=== PATIENT | female | born 1990 | race Two or more races ===

== ENCOUNTER 2018-01-11 12:23 | Inpatient (IN) | payer MEDICAID ==
[2018-01-11] MEDS ORDERED: Ondansetron 4 MG/2 ML SDV IVPUSH PRN (14:46)
[2018-01-11] MEDS ORDERED: Metoclopramide 10 MG/2 ML SDV IVPUSH ONE (14:46)
[2018-01-11] MEDS ORDERED: Sodium Chloride 0.9% 10 ML Syringe FLUSH PRN (14:46)
[2018-01-11] MEDS ORDERED: Citric Acid/Sodium Citrate Solution 30 ML Cup PO ONE (14:46)
[2018-01-11 14:53] VITALS: BP 140/88
[2018-01-11] MEDS ORDERED: Oxytocin/Lactated Ringers 10 UNIT/1,000 ML BAG IV SCH (15:00)
[2018-01-11] MEDS ORDERED: Lactated Ringers 1,000 ML IV SCH (15:00)
[2018-01-11] MEDS ORDERED: Bupivacaine 0.5% 30 ML SDV ONE ×2 (15:24→15:27)
[2018-01-11] MEDS ORDERED: Citric Acid/Sodium Citrate Solution 30 ML Cup ONE (15:37)
--- NOTE | 2018-01-11 16:14 | PCM.LDHP ---
L&D History of Present Illness - General Date of Service: 01/11/18 Admit Problem/Dx: Patient Status Order with Admit Dx/Problem 01/11/18 12:59 Patient Status [ADT] Routine 01/11/18 14:46 Patient Status [ADT] Routine Admission Diagnosis/Problem Admission Diagnosis/Problem Source of Information: Patient History Limitations: Reports: No Limitations - History of Present Illness Introduction:: 32 year at 36w5d here with gestational hypertension with superimposed pre- ecclampsia with blood pressures of 150s-170s/90s. Blood pressures at home had been 170/90s. Complaining of new onset of headaches and visual changes. PNC with Dr. Orosco complicated by 1) Obesity 2) history of gastric sleeve 3) GBS positive 4) Prior 5) Iron deficiency anemia - normal hemoglobin electrophoresis early in care 6) "prediabetes" 7) History of macrosomia 8) Desires BTL 9) Gestational hypertension - on labetolol 100 bid for some time in in September but then changed providers and it was discontinued - Related Data Allergies/Adverse Reactions: Allergies Allergy/AdvReac Type Severity Reaction Status Date / Time amoxicillin [Amoxicillin] Allergy Mild Hives Verified 01/11/18 12:59 codeine Allergy Rash Verified 01/11/18 12:59 procaine [From Novocain] Allergy Shortness Verified 01/11/18 12:59 of Breath Home Medications: Home Meds Cyanocobalamin (Vitamin B-12) [Vitamin B-12] 1,000 mcg IM ASDIRECTED 05/08/16 [ History] Pnv No.122/Iron/Folic Acid [ Multi Tablet] 1 each PO DAILY 05/08/16 [ History] Past Medical History Cardiovascular History: Reports: None Respiratory History: Reports: None Genitourinary History: Reports: None 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: , Other (See Below) Other OB/BYN History: PIH, abnormal glucose tolerance test Musculoskeletal History: Reports: None Neurological History: Reports: None Psychiatric History: Reports: Depression Other Psychiatric History: Never treated clinically, states she had after her first baby but was never DX Endocrine/Metabolic History: Reports: Other (See Below) Other Endocrine/Metabolic History: Prediabetic Hematologic History: Reports: Anemia, Other (See Below) Other Hematologic History: Microcytosis Immunologic History: Reports: None Oncologic (Cancer) History: Reports: None - Past Surgical History HEENT Surgical History: Reports: Adenoidectomy, Tonsillectomy, Other (See Below) Other HEENT Surgeries/Procedures: tubes when she was little GI Surgical History: Reports: Appendectomy, Bariatric Procedure, Cholecystectomy , Other (See Below) Other GI Surgeries/Procedures: gastric sleve Social & Family History - Family History Family Medical History: Noncontributory - Tobacco Use Smoking Status *Q: Former Smoker Used Tobacco, but Quit: Yes Month/Year Tobacco Last Used: 05/2017 - Caffeine Use Caffeine Use: Reports: Tea Other Caffeine Use: 3 cups/day - Recreational Drug Use Recreational Drug Use: No H&P Review of Systems - Review of Systems: Review Of Systems: ROS reveals no pertinent complaints other than HPI. HEENT: Reports: Headaches, Visual Changes L&D Exam - Exam Exam: See Below - Vital Signs Vital Signs: Last Vital Signs Temp 36.6 C 01/11/18 12:59 Pulse 107 H 01/11/18 12:59 Resp 18 01/11/18 12:59 BP 140/88 01/11/18 12:59 Pulse Ox 99 01/11/18 12:59 Weight: 177.808 kg - Exam General: Alert, Oriented HEENT: PERRLA, Conjunctiva Clear, EACs Clear, EOMI, Hearing Intact, Mucosa Moist & [place], Nares Patent, Normal Nasal Septum, Posterior Pharynx Clear, TMs Clear Neck: Supple, Trachea Midline Lungs: Clear to Auscultation, Normal Respiratory Effort Cardiovascular: Regular Rate, Regular Rhythm GI/Abdominal Exam: Normal Bowel Sounds, Soft, Non-Tender, No Organomegaly, No Distention, No Abnormal Bruit, No Mass, Pelvis Stable Genitourinary: Normal external exam, Normal bimanual exam, Normal speculum exam Back Exam: Normal Inspection, Full Range of Motion Extremities: Normal Inspection, Normal Range of Motion, Non-Tender, No Pedal Edema, Normal Capillary Refill Skin: Warm, Dry, Intact Neurological: Cranial Nerves Intact, Reflexes Equal Bilateral Psychiatric: Alert, Normal Affect, Normal Mood - Patient Data Lab Results Last 24 hrs: Laboratory Results - last 24 hr 01/11/18 01/11/18 01/11/18 Range/Units 12:55 13:14 13:14 WBC 6.04 (3.98-10.04) K/mm3 RBC 4.53 (3.98-5.22) M/mm3 Hgb 9.7 L (11.2-15.7) gm/L Hct 31.2 L (34.1-44.9) % MCV 68.9 L (79.4-94.8) fl MCH 21.4 L (25.6-32.2) pg MCHC 31.1 L (32.2-35.5) g/dl RDW Std Deviation 40.1 (36.4-46.3) fL Plt Count 232 (182-369) K/mm3 MPV 9.6 (9.4-12.3) fl Neut % (Auto) 66.5 (34.0-71.1) % Lymph % (Auto) 20.4 (19.3-51.7) % [place] % (Auto) 12.3 (4.7-12.5) % Eos % (Auto) 0.5 L (0.7-5.8) Baso % (Auto) 0.0 L (0.1-1.2) % Neut # (Auto) 4.02 (1.56-6.13) K/mm3 Lymph # (Auto) 1.23 (1.18-3.74) K/mm3 [place] # (Auto) 0.74 H (0.24-0.36) K/mm3 Eos # (Auto) 0.03 L (0.04-0.36) K/mm3 Baso # (Auto) 0.00 L (0.01-0.08) K/mm3 Manual Slide Review Abnormal smear BUN 3 L (7-18) mg/dL Creatinine 0.6 (0.55-1.02) mg/dL Est Cr Clr Drug Dosing 148.49 mL/min Estimated GFR (MDRD) > 60 (>60) mL/min Uric Acid 4.8 (2.6-6.0) mg/dL AST 19 (15-37) U/L ALT 11 L (14-59) U/L Lactate Dehydrogenase 154 (81-234) U/L Urine Color Yellow (Yellow) Urine Appearance Slt cloudy H (Clear) Urine pH 7.0 (5.0-8.0) Ur Specific [place] 1.025 (1.005-1.030) Urine Protein Negative (Negative) Urine Glucose (UA) Negative (Negative) Urine Ketones Trace H (Negative) Urine Occult Blood Negative (Negative) Urine Nitrite Negative (Negative) Urine Bilirubin Negative (Negative) Urine Urobilinogen 1.0 (0.2-1.0) Ur Leukocyte Esterase Trace H (Negative) Blood Type Gel Antibody Screen 01/11/18 Range/Units 13:14 WBC (3.98-10.04) K/mm3 RBC (3.98-5.22) M/mm3 Hgb (11.2-15.7) gm/L Hct (34.1-44.9) % MCV (79.4-94.8) fl MCH (25.6-32.2) pg MCHC (32.2-35.5) g/dl RDW Std Deviation (36.4-46.3) fL Plt Count (182-369) K/mm3 MPV (9.4-12.3) fl Neut % (Auto) (34.0-71.1) % Lymph % (Auto) (19.3-51.7) % [place] % (Auto) (4.7-12.5) % Eos % (Auto) (0.7-5.8) Baso % (Auto) (0.1-1.2) % Neut # (Auto) (1.56-6.13) K/mm3 Lymph # (Auto) (1.18-3.74) K/mm3 [place] # (Auto) (0.24-0.36) K/mm3 Eos # (Auto) (0.04-0.36) K/mm3 Baso # (Auto) (0.01-0.08) K/mm3 Manual Slide Review BUN (7-18) mg/dL Creatinine (0.55-1.02) mg/dL Est Cr Clr Drug Dosing mL/min Estimated GFR (MDRD) (>60) mL/min Uric Acid (2.6-6.0) mg/dL AST (15-37) U/L ALT (14-59) U/L Lactate Dehydrogenase (81-234) U/L Urine Color (Yellow) Urine Appearance (Clear) Urine pH (5.0-8.0) Ur Specific [place] (1.005-1.030) Urine Protein (Negative) Urine Glucose (UA) (Negative) Urine Ketones (Negative) Urine Occult Blood (Negative) Urine Nitrite (Negative) Urine Bilirubin (Negative) Urine Urobilinogen (0.2-1.0) Ur Leukocyte Esterase (Negative) Blood Type A POSITIVE Gel Antibody Screen Negative Result Diagrams: 01/11/18 13:14 01/11/18 13:14 - Problem List (1) Pre-eclampsia added to pre-existing hypertension SNOMED Code(s): 00437485 ICD Code: O11.9 - PRE-EXISTING HYPERTENSION WITH PRE-ECLAMPSIA, UNSP TRIMESTER Status: Acute Current Visit: Yes (2) Morbid obesity with BMI of 50.0-59.9, adult SNOMED Code(s): 847577390 ICD Code: E66.01 - MORBID (SEVERE) OBESITY DUE TO EXCESS CALORIES; Z68.43 - BODY MASS INDEX (BMI) 50-59.9 , ADULT Status: Acute Current Visit: Yes (3) Prediabetes SNOMED Code(s): 031641892 ICD Code: R73.03 - PREDIABETES Status: Acute Current Visit: Yes (4) History of delivery affecting SNOMED Code(s): 964469109, 447701297 ICD Code: O34.219 - MATERNAL CARE FOR UNSP TYPE SCAR FROM PREVIOUS DEL Status: Acute Current Visit: Yes (5) Anemia SNOMED Code(s): 850357092 ICD Code: D64.9 - ANEMIA, UNSPECIFIED Status: Acute Current Visit: Yes Qualifiers: Anemia type: iron deficiency Problem List Initiated/Reviewed/Updated: Yes Orders Last 24hrs: Active Orders 24 hr Category Date Time Status Patient Status [ADT] Routine ADT 01/11/18 14:46 Active Communication Order [RC] ROUTINE Care 01/11/18 14:46 Active Heart Tones [RC] PER UNIT ROUTINE Care 01/11/18 14:46 Active Non Stress Test [RC] PER UNIT ROUTINE Care 01/11/18 12:59 Active Non Stress Test [RC] PER UNIT ROUTINE Care 01/11/18 14:46 Active Peripheral IV Care [RC] . DIRECTED Care 01/11/18 14:46 Active Procedure Site Prep Instruct [RC] ASDIRECTED Care 01/11/18 14:46 Active Verify Patient Consent Obtain [RC] PER UNIT ROUTINE Care 01/11/18 14:46 Active Vital Signs [RC] PER UNIT ROUTINE Care 01/11/18 12:59 Active Vital Signs [RC] PFP Care 01/11/18 14:46 Active Clear Liquid Diet [DIET] Diet 01/11/18 Breakfast Active RAPID PLASMA REAGIN,RPR [CHEM] Routine Lab 01/11/18 13:14 Received Lactated Ringers [Ringers, Lactated] 1,000 ml Med 01/11/18 15:00 Active IV ASDIRECTED Ondansetron [Zofran] Med 01/11/18 14:46 Active 4 mg IVPUSH Q4H PRN Oxytocin/Lactated Ringers [Pitocin in LR 10 Units/1,000 Med 01/11/18 15:00 Active ML] 10 unit in 1,000 ml IV ASDIRECTED Sodium Chloride 0.9% [Saline Flush] Med 01/11/18 14:46 Active 10 ml FLUSH ASDIRECTED PRN PIH Panel [OM.PC] Stat Oth 01/11/18 12:59 Ordered Peripheral IV Insertion Adult [OM.PC] Routine Oth 01/11/18 14:46 Ordered Schedule Procedure [COMM] Per Unit Routine Oth 01/11/18 14:46 Ordered Resuscitation Status Routine Resus Stat 01/11/18 12:59 Ordered Medication Orders Lactated Ringer's (Ringers, Lactated) 1,000 mls @ 125 mls/hr IV ASDIRECTED JOHN Oxytocin/Lactated Ringer's (Pitocin In Lr 10 Units/1,000 Ml) 10 unit in 1,000 mls @ 100 mls/hr IV ASDIRECTED JOHN Ondansetron HCl (Zofran) 4 mg IVPUSH Q4H PRN PRN Reason: Nausea/Vomiting Sodium Chloride (Saline Flush) 10 ml FLUSH ASDIRECTED PRN PRN Reason: Keep Vein Open Assessment/Plan Comment:: 27 year old with superimposed pre-ecclampsia and prior c/s desires repeat BMI 57 and our hospital BMI cut off is 50 given [facility] only staff Given that this is not emergent but just urgent have discussed this with patient and will transfer to [facility] to the care of Dr. Santana. 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
--- NOTE | 2018-01-11 16:18 | PCM.DCSUM1 ---
Discharge Summary - Hospital Course HPI Initial Comments: Admitted for evaluation of blood pressures and assessment of possible pre- ecclampsia. Blood pressures 150s-160s/90s Given BMI transfer to [facility] Diagnosis: Stroke: No - Discharge Data Discharge Date: 01/11/18 Discharge Disposition: DC/Tfer to Acute Hospital 02 Condition: Good - Discharge Diagnosis/Problem(s) (1) Pre-eclampsia added to pre-existing hypertension SNOMED Code(s): 33779404 ICD Code: O11.9 - PRE-EXISTING HYPERTENSION WITH PRE-ECLAMPSIA, UNSP TRIMESTER Status: Acute Current Visit: Yes (2) Morbid obesity with BMI of 50.0-59.9, adult SNOMED Code(s): 397968345 ICD Code: E66.01 - MORBID (SEVERE) OBESITY DUE TO EXCESS CALORIES; Z68.43 - BODY MASS INDEX (BMI) 50-59.9 , ADULT Status: Acute Current Visit: Yes (3) Prediabetes SNOMED Code(s): 187209443 ICD Code: R73.03 - PREDIABETES Status: Acute Current Visit: Yes (4) History of delivery affecting SNOMED Code(s): 651778218, 769840097 ICD Code: O34.219 - MATERNAL CARE FOR UNSP TYPE SCAR FROM PREVIOUS DEL Status: Acute Current Visit: Yes (5) Anemia SNOMED Code(s): 896709037 ICD Code: D64.9 - ANEMIA, UNSPECIFIED Status: Acute Current Visit: Yes Qualifiers: Anemia type: iron deficiency - Discharge Plan *PRESCRIPTION DRUG MONITORING PROGRAM REVIEWED*: Not Applicable *COPY OF PRESCRIPTION DRUG MONITORING REPORT IN PATIENT KASI: Not Applicable Home Medications: Home Meds Cyanocobalamin (Vitamin B-12) [Vitamin B-12] 1,000 mcg IM ASDIRECTED 05/08/16 [ History] Pnv No.122/Iron/Folic Acid [ Multi Tablet] 1 each PO DAILY 05/08/16 [ History] - Discharge Summary/Plan Comment DC Time >30 min.: No - General Info Date of Service: 01/11/18 Functional Status: Reports: Pain Controlled - Review of Systems General: Reports: No Symptoms HEENT: Reports: Headaches, Visual Changes Pulmonary: Reports: No Symptoms Cardiovascular: Reports: No Symptoms Gastrointestinal: Reports: Abdominal Pain Genitourinary: Reports: No Symptoms Musculoskeletal: Reports: No Symptoms Skin: Reports: No Symptoms Neurological: Reports: No Symptoms Psychiatric: Reports: No Symptoms - Patient Data Vitals - Most Recent: Last Vital Signs Temp 36.6 C 01/11/18 12:59 Pulse 107 H 01/11/18 12:59 Resp 18 01/11/18 12:59 BP 140/88 01/11/18 12:59 Pulse Ox 99 01/11/18 12:59 Weight - Most Recent: 177.808 kg Lab Results - Last 24 hrs: Laboratory Results - last 24 hr 01/11/18 01/11/18 01/11/18 Range/Units 12:55 13:14 13:14 WBC 6.04 (3.98-10.04) K/mm3 RBC 4.53 (3.98-5.22) M/mm3 Hgb 9.7 L (11.2-15.7) gm/L Hct 31.2 L (34.1-44.9) % MCV 68.9 L (79.4-94.8) fl MCH 21.4 L (25.6-32.2) pg MCHC 31.1 L (32.2-35.5) g/dl RDW Std Deviation 40.1 (36.4-46.3) fL Plt Count 232 (182-369) K/mm3 MPV 9.6 (9.4-12.3) fl Neut % (Auto) 66.5 (34.0-71.1) % Lymph % (Auto) 20.4 (19.3-51.7) % [place] % (Auto) 12.3 (4.7-12.5) % Eos % (Auto) 0.5 L (0.7-5.8) Baso % (Auto) 0.0 L (0.1-1.2) % Neut # (Auto) 4.02 (1.56-6.13) K/mm3 Lymph # (Auto) 1.23 (1.18-3.74) K/mm3 [place] # (Auto) 0.74 H (0.24-0.36) K/mm3 Eos # (Auto) 0.03 L (0.04-0.36) K/mm3 Baso # (Auto) 0.00 L (0.01-0.08) K/mm3 Manual Slide Review Abnormal smear BUN 3 L (7-18) mg/dL Creatinine 0.6 (0.55-1.02) mg/dL Est Cr Clr Drug Dosing 148.49 mL/min Estimated GFR (MDRD) > 60 (>60) mL/min Uric Acid 4.8 (2.6-6.0) mg/dL AST 19 (15-37) U/L ALT 11 L (14-59) U/L Lactate Dehydrogenase 154 (81-234) U/L Urine Color Yellow (Yellow) Urine Appearance Slt cloudy H (Clear) Urine pH 7.0 (5.0-8.0) Ur Specific [place] 1.025 (1.005-1.030) Urine Protein Negative (Negative) Urine Glucose (UA) Negative (Negative) Urine Ketones Trace H (Negative) Urine Occult Blood Negative (Negative) Urine Nitrite Negative (Negative) Urine Bilirubin Negative (Negative) Urine Urobilinogen 1.0 (0.2-1.0) Ur Leukocyte Esterase Trace H (Negative) Blood Type Gel Antibody Screen 01/11/18 Range/Units 13:14 WBC (3.98-10.04) K/mm3 RBC (3.98-5.22) M/mm3 Hgb (11.2-15.7) gm/L Hct (34.1-44.9) % MCV (79.4-94.8) fl MCH (25.6-32.2) pg MCHC (32.2-35.5) g/dl RDW Std Deviation (36.4-46.3) fL Plt Count (182-369) K/mm3 MPV (9.4-12.3) fl Neut % (Auto) (34.0-71.1) % Lymph % (Auto) (19.3-51.7) % [place] % (Auto) (4.7-12.5) % Eos % (Auto) (0.7-5.8) Baso % (Auto) (0.1-1.2) % Neut # (Auto) (1.56-6.13) K/mm3 Lymph # (Auto) (1.18-3.74) K/mm3 [place] # (Auto) (0.24-0.36) K/mm3 Eos # (Auto) (0.04-0.36) K/mm3 Baso # (Auto) (0.01-0.08) K/mm3 Manual Slide Review BUN (7-18) mg/dL Creatinine (0.55-1.02) mg/dL Est Cr Clr Drug Dosing mL/min Estimated GFR (MDRD) (>60) mL/min Uric Acid (2.6-6.0) mg/dL AST (15-37) U/L ALT (14-59) U/L Lactate Dehydrogenase (81-234) U/L Urine Color (Yellow) Urine Appearance (Clear) Urine pH (5.0-8.0) Ur Specific [place] (1.005-1.030) Urine Protein (Negative) Urine Glucose (UA) (Negative) Urine Ketones (Negative) Urine Occult Blood (Negative) Urine Nitrite (Negative) Urine Bilirubin (Negative) Urine Urobilinogen (0.2-1.0) Ur Leukocyte Esterase (Negative) Blood Type A POSITIVE Gel Antibody Screen Negative Med Orders - Current: Current Medications Lactated Ringer's (Ringers, Lactated) 1,000 mls @ 125 mls/hr IV ASDIRECTED JOHN Oxytocin/Lactated Ringer's (Pitocin In Lr 10 Units/1,000 Ml) 10 unit in 1,000 mls @ 100 mls/hr IV ASDIRECTED JOHN Ondansetron HCl (Zofran) 4 mg IVPUSH Q4H PRN PRN Reason: Nausea/Vomiting Sodium Chloride (Saline Flush) 10 ml FLUSH ASDIRECTED PRN PRN Reason: Keep Vein Open Discontinued Medications Bupivacaine HCl (Marcaine 0.5%) Confirm Administered Dose 30 ml .ROUTE .STK-MED ONE Stop: 01/11/18 15:25 Bupivacaine HCl (Marcaine 0.5%) Confirm Administered Dose 30 ml .ROUTE .STK-MED ONE Stop: 01/11/18 15:28 Citric Acid/Sodium Citrate (Bicitra Solution) 30 ml PO ONETIME ONE Stop: 01/11/18 14:47 Citric Acid/Sodium Citrate (Bicitra Solution) Confirm Administered Dose 30 ml .ROUTE .STK-MED ONE Stop: 01/11/18 15:38 Metoclopramide HCl (Reglan) 10 mg IVPUSH ONETIME ONE Stop: 01/11/18 14:47
== END 2018-01-11 17:00 | DRG 781 ==
LOC: JD.OBCHECK 12:23 → JD.OB 14:46
PROVIDERS: ADMIT Obstetrics & Gynecology; ATTEND Obstetrics & Gynecology
DX: O11.3 Pre-existing hypertension with pre-eclampsia, third trimester (principal); Z68.43 Body mass index [BMI] 50.0-59.9, adult; O10.913 Unspecified pre-existing hypertension complicating pregnancy, third trimester; O99.213 Obesity complicating pregnancy, third trimester; O99.89 Other specified diseases and conditions complicating pregnancy, childbirth and the puerperium; E66.01 Morbid (severe) obesity due to excess calories; R73.03 Prediabetes; O99.013 Anemia complicating pregnancy, third trimester; Z3A.36 36 weeks gestation of pregnancy; D50.9 Iron deficiency anemia, unspecified; Z98.84 Bariatric surgery status; O99.820 Streptococcus B carrier state complicating pregnancy; O34.219 Maternal care for unspecified type scar from previous cesarean delivery; N85.8 Other specified noninflammatory disorders of uterus; O13.3 Gestational [pregnancy-induced] hypertension without significant proteinuria, third trimester; Z79.899 Other long term (current) drug therapy; Z88.6 Allergy status to analgesic agent; Z88.1 Allergy status to other antibiotic agents; O99.343 Other mental disorders complicating pregnancy, third trimester; F32.9 Major depressive disorder, single episode, unspecified; Z90.49 Acquired absence of other specified parts of digestive tract; Z87.891 Personal history of nicotine dependence
CPT/HCPCS: 36415; 59025; 81003; 82565; 83615; 84450; 84460; 84520; 84550; 85025; 86592; 86850; 86900; 86901; J3490

== ENCOUNTER 2023-05-13 15:30 | Emergency (ER) | payer SELFPAY ==
[2023-05-13 15:50] VITALS: BP 182/110; PULSE 103
== END 2023-05-13 17:10 | disposition left against medical advice (07) ==
LOC: JD.ED 15:30
DX: R20.2 Paresthesia of skin (principal); Z88.0 Allergy status to penicillin; Z88.3 Allergy status to other anti-infective agents; Z88.5 Allergy status to narcotic agent; Z90.49 Acquired absence of other specified parts of digestive tract
CPT/HCPCS: 70450; 70450-26; 71046; 71046-26; 72125; 72125-26; 93005; 99284

== ENCOUNTER 2023-07-29 20:50 | Emergency (ER) | payer MEDICAID ==
[2023-07-29] MEDS: Ketorolac 60 MG/2 ML SDV IM ONE (21:50)
[2023-07-29 22:19] VITALS: BP 185/95; PULSE 95
== END 2023-07-29 22:15 | disposition home or self-care (01) ==
LOC: JD.ED 20:50
DX: K02.9 Dental caries, unspecified (principal); Z90.49 Acquired absence of other specified parts of digestive tract; Z88.0 Allergy status to penicillin; Z88.5 Allergy status to narcotic agent
CPT/HCPCS: 96372; 99282; J1885; 99283

== ENCOUNTER 2023-08-09 21:11 | Emergency (ER) | payer MEDICAID ==
[2023-08-09] MEDS: Ketorolac 60 MG/2 ML SDV IM ONE (21:46)
[2023-08-09 22:18] VITALS: BP 125/76; PULSE 56
== END 2023-08-09 22:18 | disposition home or self-care (01) ==
LOC: JD.ED 21:11
DX: K08.89 Other specified disorders of teeth and supporting structures (principal); Z88.0 Allergy status to penicillin; Z88.5 Allergy status to narcotic agent; Z88.1 Allergy status to other antibiotic agents; Z90.49 Acquired absence of other specified parts of digestive tract
CPT/HCPCS: 96372; 99282; J1885

== ENCOUNTER 2023-08-13 14:42 | Emergency (ER) | payer MEDICAID | END 2023-08-13 15:22 | disposition left against medical advice (07) | LOC: JD.ED 14:42 | DX: Z53.21 Procedure and treatment not carried out due to patient leaving prior to being seen by health care provider (principal) ==

== ENCOUNTER 2023-08-14 11:12 | Emergency (ER) | payer MEDICAID ==
[2023-08-14 11:33] VITALS: PULSE 100
[2023-08-14 12:48] LABS: BASOPHILS PERCENT AUTO 0.4 % (0.0-1.0); EOSINOPHILS ABSOLUTE AUTO 0.1 K/mm3 (0.0-0.4); EOSINOPHILS PERCENT AUTO 0.7 % (0.0-6.0); HEMATOCRIT 43.4 % (37.0-47.0); IMMATURE GRAN ABSOLUTE AUTO 0.02 K/mm3 (0.00-0.05); IMMATURE GRAN PERCENT AUTO 0.3 % (0.0-0.4); LYMPHOCYTES PERCENT AUTO 28.4 % (24.0-44.0); MEAN CORPUSCULAR HGB CONC 34.6 g/dl (32.0-36.0); MEAN CORPUSCULAR VOLUME 81.1 fl (83.0-99.0); MEAN PLATELET VOLUME 9.6 fl (9.4-12.3); MONOCYTES ABSOLUTE AUTO 0.7 K/mm3 (0.0-0.8); MONOCYTES PERCENT AUTO 9.7 % (0.0-8.0); NEUTROPHILS ABSOLUTE AUTO 4.3 K/mm3 (1.8-7.7); NEUTROPHILS PERCENT AUTO 60.5 % (41.0-71.0); PLATELET COUNT,PLT 251 K/mm3 (150-400); RED BLOOD CELL COUNT 5.35 M/mm3 (4.10-5.30); WHITE BLOOD CELL COUNT,WBC 7.11 K/mm3 (3.9-11.3)
[2023-08-14 13:13] LABS: ALBUMIN 3.8 g/dl (3.4-5.0); ANION GAP 14.6 (5-15); BILIRUBIN TOTAL 0.7 mg/dL (0.2-1.0); BUN/CREATININE RATIO 15.7 (14-18); CALCIUM 9.2 mg/dL (8.5-10.1); CREATININE 0.7 mg/dL (0.55-1.02); EST CRCL DRUG DOSING (CG) 121.69 mL/min; POTASSIUM,K 3.6 mEq/L (3.5-5.1); PROTEIN TOTAL,TP 7.6 g/dl (6.4-8.2)
[2023-08-14] MEDS: amLODIPine 5 MG Tab PO ONE ×2 (13:14→13:45)
[2023-08-14] MEDS: cefTRIAXone 1 GM Vial IM ONE (13:14)
[2023-08-14] MEDS: Acetaminophen 325 MG Tab PO ONE (13:45)
[2023-08-14] MEDS: Ketorolac 60 MG/2 ML SDV IM ONE (13:47)
[2023-08-14 13:49] VITALS: BP 156/115
== END 2023-08-14 13:55 | disposition home or self-care (01) ==
LOC: JD.ED 11:12
DX: K04.7 Periapical abscess without sinus (principal); F17.210 Nicotine dependence, cigarettes, uncomplicated; Z86.16 Personal history of COVID-19; Z79.899 Other long term (current) drug therapy; Z88.0 Allergy status to penicillin; Z88.5 Allergy status to narcotic agent; Z88.8 Allergy status to other drugs, medicaments and biological substances
CPT/HCPCS: 36415; 80053; 84702; 85025; 96372; 99283; A9270; J1885

== ENCOUNTER 2023-08-23 00:48 | Emergency (ER) | payer MEDICAID ==
[~2023-08-23 00:48] MED LIST: Naloxone 2 MG/2 ML Syringe ONE
[2023-08-23] MEDS: Haloperidol Lactate 5 MG/ML SDV IVPUSH ONE ×2 (01:02→01:20)
[2023-08-23] MEDS: Sodium Chloride 0.9% 1,000 ML IV ONE (01:07)
[2023-08-23 01:26] LABS: BASOPHILS PERCENT AUTO 0.3 % (0.0-1.0); EOSINOPHILS ABSOLUTE AUTO 0.1 K/mm3 (0.0-0.4); EOSINOPHILS PERCENT AUTO 1.3 % (0.0-6.0); HEMATOCRIT 44.1 % (37.0-47.0); HEMOGLOBIN 15.1 gm/dl (12.0-16.0); IMMATURE GRAN ABSOLUTE AUTO 0.02 K/mm3 (0.00-0.05); IMMATURE GRAN PERCENT AUTO 0.3 % (0.0-0.4); LYMPHOCYTES ABSOLUTE AUTO 2.1 K/mm3 (1.0-4.8); LYMPHOCYTES PERCENT AUTO 30.1 % (24.0-44.0); MEAN CORPUSCULAR HEMOGLOBIN 27.9 pg (28.0-32.0); MEAN CORPUSCULAR HGB CONC 34.2 g/dl (32.0-36.0); MEAN CORPUSCULAR VOLUME 81.4 fl (83.0-99.0); MEAN PLATELET VOLUME 9.7 fl (9.4-12.3); MONOCYTES ABSOLUTE AUTO 0.6 K/mm3 (0.0-0.8); MONOCYTES PERCENT AUTO 8.9 % (0.0-8.0); NEUTROPHILS PERCENT AUTO 59.1 % (41.0-71.0); PLATELET COUNT,PLT 231 K/mm3 (150-400); RED BLOOD CELL COUNT 5.42 M/mm3 (4.10-5.30); WHITE BLOOD CELL COUNT,WBC 6.82 K/mm3 (3.9-11.3)
[2023-08-23 01:47] LABS: ALANINE AMINOTRANSFERASE,ALT 30 U/L (14-59); ALBUMIN 3.6 g/dl (3.4-5.0); ALKALINE PHOSPHATASE 85 U/L (46-116); ANION GAP 16.9 (5-15); ASPARTATE AMNIOTRANSFERASE,AST 16 U/L (15-37); BILIRUBIN TOTAL 0.5 mg/dL (0.2-1.0); BLOOD UREA NITROGEN,BUN 12 mg/dL (7-18); BUN/CREATININE RATIO 17.1 (14-18); CALCIUM 8.4 mg/dL (8.5-10.1); CARBON DIOXIDE,CO2 24 mEq/L (21-32); CHLORIDE,CL 103 mEq/L (98-107); CREATININE 0.7 mg/dL (0.55-1.02); EST CRCL DRUG DOSING (CG) 125.92 mL/min; ESTIMATED GFR 119 mL/min (>60); ETHANOL BLOOD MEDICAL 0.13 gm% (0.00); GLUCOSE RANDOM 152 mg/dL (70-99); LIPASE 11 U/L (16-77); POTASSIUM,K 2.9 mEq/L (3.5-5.1); PROTEIN TOTAL,TP 7.2 g/dl (6.4-8.2); SODIUM,NA 141 mEq/L (136-145)
[2023-08-23 01:50] LABS: TROPONIN I HIGH SENSITIVITY < 4 pg/mL (<=51)
[2023-08-23] MEDS: Magnesium Sulfate/Water 2 GM/50 ML BAG IV ONE (02:14)
[2023-08-23] MEDS: Iopamidol 612 MG/ML 100 ML Bottle IVPUSH ONE (02:14)
[2023-08-23] MEDS: Sodium Chloride 0.9% 10 ML Syringe FLUSH PRN (02:16)
[2023-08-23] MEDS: Potassium Chloride 10 MEQ in Premix Bag 1 BAG IV SCH (02:28)
[2023-08-23 03:49] LABS: AMPHETAMINES SCREEN, URINE NEGATIVE (CUTOFF=500); BARBITURATE SCREEN,URINE NEGATIVE (CUTOFF=200); BENZODIAZEPINES SCREEN,URINE NEGATIVE (CUTOFF=150); METHADONE SCREEN, URINE NEGATIVE (CUTOFF=200); METHAMPHETAMINES SCREEN, URINE PRESUMPTIVE POSITIVE (CUTOFF=500)
[2023-08-23 03:50] LABS: BUPRENORPHINE SCREEN,URINE NEGATIVE (CUTOFF=10); OXYCODONE SCREEN,URINE NEGATIVE (CUT0FF=100); THC SCREEN,URINE 20 NG/ML NEGATIVE (CUTOFF=50)
[2023-08-23] MEDS: Ketorolac 15 MG/ML SDV IVPUSH ONE (03:50)
[2023-08-23 06:45] VITALS: BP 145/83; PULSE 86
== END 2023-08-23 06:56 | disposition home or self-care (01) ==
LOC: JD.ED 00:48
DX: F10.120 Alcohol abuse with intoxication, uncomplicated (principal); Z79.899 Other long term (current) drug therapy; Z86.16 Personal history of COVID-19; Z88.1 Allergy status to other antibiotic agents; Z88.5 Allergy status to narcotic agent
CPT/HCPCS: 36415; 70450; 71260; 72125; 74177; 80053; 80306; 80307; 83690; 84132; 84484; 84703; 85025; 93005; 96361; 96365; 96366; 96367; 96375; 99285; J1630; J1885; J3475; J3480; J3490; J7030; Q9967; 93010; 99284